=== PATIENT | female | born 1990 | race Caucasian/White ===

== ENCOUNTER → 2020-11-09 | Outpatient (CLI) | payer OTHER ==
[~2020-11-09] MED LIST: PRENATABS FA T1 EACH PO; PRILOSEC OTC20 MG PO; PROVENTIL HFA 61 INH INH; SUBUTEX 8 MG TAB8 MG SL; TERCONAZOLE45 GM VG; ZYRTEC10 MG PO
== END ==
LOC: RAD 11:53
DX: M54.5 Low back pain (principal); M54.6 Pain in thoracic spine
CPT/HCPCS: 72072; 72110